=== PATIENT | female | born 1995 | race Caucasian/White ===

== ENCOUNTER 2023-11-17 05:07 | Inpatient (IN) ==
[2023-11-17 05:40] LABS: ABS Neutrophils 8.7 10^3/uL (1.5-7.6); Eosinophil % 0.2 %; Hematocrit 38.8 % (35-45); Hemoglobin 13.2 g/dL (11.5-14.3); Lymphocyte % 9.3 %; Mean Corpuscular Hemoglobin 30.6 pg (27-33); Mean Platelet Volume 8.1 fL (7.5-11.2); Platelet Count 237 10^3/uL (150-450); Red Blood Count 4.31 10^6/uL (3.63-4.92); White Blood Count 10.7 10^3/uL (3.8-11.8)
[2023-11-17 06:08] LABS: Albumin 3.7 g/dL (3.2-5.2); Albumin/Globulin Ratio 1.5 (1-3); C Reactive Protein 90.11 mg/L (<8.01); Calcium 8.3 mg/dL (8.6-10.3); Creatinine, Serum 0.82 mg/dL (0.51-0.95); Globulin 2.5 g/dL (2-4); Magnesium 1.8 mg/dL (1.9-2.7); Potassium 3.3 mmol/L (3.5-5.0); Total Bilirubin 0.2 mg/dL (0.2-1.0); Total Protein 6.2 g/dL (6.4-8.9); eGFR CKD-EPI 101.1 (>60)
[2023-11-17 06:15] LABS: HCG Pregnancy 1.2 mIU/mL
[2023-11-17] MEDS ORDERED: Lactated Ringers 1000 ml BAG 1,000 ML IV ONE ×2 (06:15→11:21)
[2023-11-17] MEDS ORDERED: Ondansetron 4 mg VIAL 2 MG/ML 2 ml VIAL IV ONE (06:17)
[2023-11-17 06:45] LABS: TSH Ultra Thyroid Stim Horm 4.36 mcIU/mL (0.34-5.60)
[2023-11-17] MEDS ORDERED: Potassium Chlor 20 meq TAB.ER PO ONE (06:48)
[2023-11-17] MEDS ORDERED: Iohexol 300 (CONTRAST) 10 ML SDV IV ONE (07:05)
[2023-11-17 09:12] LABS: Urine Appearance Cloudy; Urine Bilirubin Negative (Negative); Urine Blood 2+ (Negative); Urine Color Yellow; Urine Glucose Negative (Negative); Urine Ketones 2+ (Negative); Urine Nitrite Negative (Negative); Urine Protein Negative (Negative); Urine Specific Gravity 1.015 (1.002-1.030); Urine Urobilinogen Negative (Negative)
[2023-11-17 09:51] LABS: Rapid COVID-19 Molecular Detected (Undetected)
[2023-11-17 09:56] LABS: Erythrocyte Sed Rate 14 mm/Hr (0-19)
[2023-11-17 10:00] LABS: Urine Bacteria Absent (Absent); Urine Red Blood Cell Trace(0-2/hpf) (Absent); Urine Squamous Epithelial Cell Present (Absent); Urine White Blood Cell 1+(6-10/hpf) (Absent)
[2023-11-17 10:56] LABS: Influenza A Molecular Negative (Negative); Influenza B Molecular Negative (Negative)
[2023-11-17] MEDS: ETH EST PO SCH (21:04)
[2023-11-17] MEDS: NORETHINDRONE PO SCH (21:04)
[2023-11-18] MEDS: Ondansetron 4 mg VIAL 2 MG/ML 2 ml VIAL IV PRN ×2 (02:52→23:33)
[2023-11-18] MEDS ORDERED: Bismuth Subsalicylate (BTL) 525 MG/30 ML (BULK BTL) PO PRN (08:08)
[2023-11-18 10:46] LABS: ABS Lymphocytes 1.4 10^3/uL (1.0-4.8); ABS Monocytes 1.1 10^3/uL (0.0-0.9); ABS Neutrophils 8.7 10^3/uL (1.5-7.6); Eosinophil % 0.4 %; Hematocrit 38.8 % (35-45); Hemoglobin 13.1 g/dL (11.5-14.3); Lymphocyte % 12.1 %; Mean Corpuscular Hgb Conc 33.8 g/dL (31-36); Mean Corpuscular Volume 88.8 fL (80-97); Mean Platelet Volume 8.4 fL (7.5-11.2); Platelet Count 248 10^3/uL (150-450); Red Blood Count 4.37 10^6/uL (3.63-4.92); Red Cell Distribution Width 12.3 % (12-17); White Blood Count 11.2 10^3/uL (3.8-11.8)
[2023-11-18 11:01] LABS: Creatinine, Serum 0.72 mg/dL (0.51-0.95); Magnesium 1.8 mg/dL (1.9-2.7); Potassium 3.7 mmol/L (3.5-5.0); eGFR CKD-EPI 118.2 (>60)
[2023-11-18 11:34] LABS: C Reactive Protein 141.48 mg/L (<8.01)
[2023-11-18] MEDS: metroNIDAZOLE IV 500 MG/100ML 500 MG/100 ML BAG IVPB SCH ×2 (14:20→21:14)
[2023-11-18] MEDS: NORETHINDRONE PO SCH (21:13)
[2023-11-18] MEDS: ETH EST PO SCH (21:13)
[2023-11-19] MEDS: metroNIDAZOLE IV 500 MG/100ML 500 MG/100 ML BAG IVPB SCH ×3 (05:13→22:38)
[2023-11-19 07:00] LABS: ABS Lymphocytes 1.7 10^3/uL (1.0-4.8); ABS Monocytes 0.9 10^3/uL (0.0-0.9); ABS Neutrophils 7.7 10^3/uL (1.5-7.6); Eosinophil % 0.2 %; Hematocrit 36.5 % (35-45); Hemoglobin 12.4 g/dL (11.5-14.3); Lymphocyte % 16.7 %; Mean Corpuscular Hemoglobin 30.2 pg (27-33); Mean Corpuscular Volume 88.8 fL (80-97); Mean Platelet Volume 8.1 fL (7.5-11.2); Platelet Count 264 10^3/uL (150-450); Red Blood Count 4.11 10^6/uL (3.63-4.92); Red Cell Distribution Width 12.1 % (12-17); White Blood Count 10.4 10^3/uL (3.8-11.8)
[2023-11-19 08:00] LABS: C Reactive Protein 90.12 mg/L (<8.01); Calcium 7.9 mg/dL (8.6-10.3); Creatinine, Serum 0.63 mg/dL (0.51-0.95); Magnesium 1.7 mg/dL (1.9-2.7); Phosphorus 2.9 mg/dL (2.5-5.0); Potassium 3.2 mmol/L (3.5-5.0); eGFR CKD-EPI 125.4 (>60)
[2023-11-19] MEDS ORDERED: Potassium Chlor 20 meq TAB.ER PO ONE (09:38)
[2023-11-19] MEDS ORDERED: Magnesium Sulfate 2 gm BAG 2 GM/50 ML BAG IVPB ONE (09:38)
[2023-11-19] MEDS: Ondansetron 4 mg VIAL 2 MG/ML 2 ml VIAL IV PRN ×2 (12:02→19:55)
[2023-11-19] MEDS ORDERED: fentaNYL 100 mcg/2 ml 50 MCG/ML VIAL ONE (14:06)
[2023-11-19] MEDS ORDERED: Midazolam 10 mg/10 ml VIAL 1 mg/ml 10 ml VIAL (10 mg) ONE (14:06)
[2023-11-19] MEDS: KCL 20 MEQ/100 ML IVPREMIX 20 MEQ/100 ML BAG IV SCH ×2 (14:42→19:20)
[2023-11-19] MEDS ORDERED: Potassium Chloride LIQUID 20 MEQ/15 ML LIQUID PO ONE (18:06)
[2023-11-19] MEDS: NORETHINDRONE PO SCH (19:55)
[2023-11-19] MEDS: ETH EST PO SCH (19:55)
[2023-11-19 22:55] LABS: Calprotectin 395 mcg/g
[2023-11-20] MEDS: metroNIDAZOLE IV 500 MG/100ML 500 MG/100 ML BAG IVPB SCH ×2 (05:17→13:41)
[2023-11-20 06:52] LABS: ABS Monocytes 0.7 10^3/uL (0.0-0.9); ABS Neutrophils 4.5 10^3/uL (1.5-7.6); Eosinophil % 0.6 %; Hematocrit 35.4 % (35-45); Lymphocyte % 27.5 %; Mean Corpuscular Hemoglobin 30.3 pg (27-33); Mean Corpuscular Hgb Conc 33.8 g/dL (31-36); Mean Corpuscular Volume 89.5 fL (80-97); Mean Platelet Volume 7.6 fL (7.5-11.2); Platelet Count 265 10^3/uL (150-450); Red Blood Count 3.96 10^6/uL (3.63-4.92); Red Cell Distribution Width 12.1 % (12-17); White Blood Count 7.3 10^3/uL (3.8-11.8)
[2023-11-20 07:10] LABS: C Reactive Protein 33.37 mg/L (<8.01); Calcium 7.7 mg/dL (8.6-10.3); Creatinine, Serum 0.65 mg/dL (0.51-0.95); Potassium 3.6 mmol/L (3.5-5.0); eGFR CKD-EPI 124.5 (>60)
[2023-11-20 13:52] VITALS: BP 98/63
[2023-11-20 15:31] LABS: Adenovirus F40/41 Negative (Negative); Astrovirus Negative (Negative); Cryptosporidium species Negative (Negative); Cyclospora cayetanensis Negative (Negative); Entamoeba histolytica Negative (Negative); Enteroaggregative E.coli(EAEC) Negative (Negative); Enteropathogenic Ecoli(EPEC) Positive (Negative); Enterotoxigenic Ecoli(ETEC) Negative (Negative); Norovirus GI/GII Negative (Negative); Plesiomonas shigelloides Negative (Negative); Salmonella species Negative (Negative); Sapovirus Negative (Negative); Shiga toxin producing E. coli Negative (Negative); Shigella/Enteroinvasive E.coli Positive (Negative); Specimen Source STOOL; Vibrio cholerae Negative (Negative); Yersinia species Negative (Negative)
[2023-11-22 14:38] LABS: CMV DNA DETECT/QT, P Undetected IU/mL (Undetected)
== END 2023-11-20 16:35 | disposition home or self-care (01) | DRG 371 ==
LOC: ED 05:07 → EDHOLD 05:07 → SUATTDRO 09:24 → MED 11:07
PROVIDERS: ADMIT Student in an Organized Health Care Education/Training Program; ATTEND Internal Medicine